=== PATIENT | male | born 1960 ===

== ENCOUNTER 2017-03-07 19:26 | Emergency (ER) | payer OTHER ==
[2017-03-07 19:26] VITALS: BMI 32.9
[2017-03-07 19:57] VITALS: RESP 18; TEMP 98; O2SAT 98
--- NOTE | 2017-03-07 20:54 | C.PDOC ---
History Of Present Illness 56 year old male presents to the ED for evaluation of intermittent bleeding from right nostril which occurred last night and twice today. Patient states the temperature in his home was warm. Patient felt something inside is nose, so he put finger inside and began bleeding after. He denies fever, chills, headache , dizziness. Time Seen by Provider: 03/07/17 20:11 Chief Complaint (Nursing): ENT Problem History Per: Patient History/Exam Limitations: None Onset/Duration Of Symptoms: Hrs, Intermittent Episodes Current Symptoms Are (Timing): Better Past Medical History Reviewed: Historical Data, Nursing Documentation, Vital Signs Vital Signs: Last Vital Signs Temp 98 F 03/07/17 19:54 Pulse 72 03/07/17 21:04 Resp 18 03/07/17 21:04 BP 119/65 03/07/17 21:04 Pulse Ox 98 03/07/17 21:04 - Medical History PMH: HTN (BORDERLINE; CONTROLLED WITH DIET) Denies: Colonic Polyps, Fractures, TIA Surgical History: No Surg Hx Denies: Endoscopy Family History: States: Unknown Family Hx - Social History Hx Alcohol Use: Yes Hx Substance Use: No - Immunization History Hx Tetanus Toxoid Vaccination: No Hx Influenza Vaccination: Yes Hx Pneumococcal Vaccination: No Review Of Systems Constitutional: Negative for: Fever, Chills ENT: Positive for: Other (epistaxis ) Neurological: Negative for: Headache, Dizziness Physical Exam - Physical Exam Appears: Non-toxic, No Acute Distress Skin: Normal Color, Warm, Dry Head: Atraumatic, Normacephalic Eye(s): bilateral: Normal Inspection Nose: No Epistaxis, No Septal Hematoma, No Other (active bleeding, friable vessels) Neck: Supple Chest: Symmetrical, No Deformity, No Tenderness Cardiovascular: Rhythm Regular, No Murmur Respiratory: Normal Breath Sounds, No Rales, No Rhonchi, No Wheezing Neurological/Psych: Oriented x3, Normal Speech, Normal Cognition Gait: Steady ED Course And Treatment O2 Sat by Pulse Oximetry: 98 (on RA) Pulse Ox Interpretation: Normal Progress Note: On reassessment, patient is resting comfortably, showing no signs of distress and has no bleeding at this time. Patient is advised to follow up with his PMD/ENT within 1-2 days for further evaluation and/or return to the ED if symptoms return or worsen. 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 - Scribe Statement The provider has reviewed the documentation as recorded by the Scribe (Silvia Winslow) All medical record entries made by the Scribe were at my direction and personally dictated by me. I have reviewed the chart and agree that the record accurately reflects my personal performance of the history, physical exam, medical decision making, and the department course for this patient. I have also personally directed, reviewed, and agree with the discharge instructions and disposition.
[2017-03-07 21:05] VITALS: BP 119/65; PULSE 72
== END 2017-03-07 21:06 | disposition home or self-care (01) ==
LOC: SUPCPDRO 19:26 → C.ER 19:26
DX: R04.0 Epistaxis (principal)

== ENCOUNTER 2017-09-09 23:04 | Emergency (ER) | payer OTHER ==
[2017-09-09 23:05] VITALS: BMI 32.9
[2017-09-09 23:25] VITALS: BP 127/83; PULSE 131
[2017-09-09] MEDS ORDERED: Naproxen 550 mg Tab PO STA (23:41)
--- NOTE | 2017-09-09 23:55 | C.PDOC ---
History Of Present Illness 57 y/o male presents to the ED complaining of bodyaches and fever onset today around 3:00pm. Associated with mild dysuria. Patient denies any nausea, vomiting , diarrhea, cough, or sore throat. Time Seen by Provider: 09/09/17 23:35 Chief Complaint (Nursing): Fever History Per: Patient History/Exam Limitations: no limitations Onset/Duration Of Symptoms: Hrs Current Symptoms Are (Timing): Still Present Past Medical History Reviewed: Historical Data, Nursing Documentation, Vital Signs Vital Signs: Last Vital Signs Temp 100 F H 09/09/17 23:21 Pulse 131 H 09/09/17 23:21 Resp 16 09/09/17 23:21 BP 127/83 09/09/17 23:21 Pulse Ox 94 L 09/10/17 00:58 - Medical History PMH: HTN (BORDERLINE; CONTROLLED WITH DIET) Denies: Colonic Polyps, Fractures, TIA Surgical History: Hernia Repair Denies: Endoscopy Family History: States: Unknown Family Hx - Social History Hx Alcohol Use: No Hx Substance Use: No - Immunization History Hx Tetanus Toxoid Vaccination: No Hx Influenza Vaccination: No Hx Pneumococcal Vaccination: No Review Of Systems Except As Marked, All Systems Reviewed And Found Negative. Constitutional: Positive for: Fever, Other (body aches) ENT: Negative for: Throat Pain Respiratory: Negative for: Cough Gastrointestinal: Negative for: Nausea, Vomiting, Diarrhea Genitourinary: Positive for: Dysuria Physical Exam - Physical Exam Appears: Non-toxic, No Acute Distress Skin: Normal Color, Warm, Dry Head: Atraumatic, Normacephalic Eye(s): bilateral: Normal Inspection, PERRL, EOMI Nose: Normal Oral Mucosa: Moist Neck: Normal ROM, Supple Chest: Symmetrical Cardiovascular: Rhythm Regular, No Murmur Respiratory: Normal Breath Sounds, No Accessory Muscle Use, No Rales, No Rhonchi , No Wheezing Gastrointestinal/Abdominal: Soft, No Tenderness, No Distention Extremity: Bilateral: Atraumatic, Normal Color And Temperature, Normal ROM Pulses: Left Dorsalis Pedis: Normal, Right Dorsalis Pedis: Normal Neurological/Psych: Oriented x3, Normal Speech, Normal Cranial Nerves, Normal Motor, Normal Sensation, Other (No focal deficits) Gait: Steady ED Course And Treatment - Laboratory Results Result Diagrams: 09/09/17 23:52 05/26/18 23:52 O2 Sat by Pulse Oximetry: 94 (NC) Pulse Ox Interpretation: Normal Medical Decision Making Medical Decision Making: Time: 23:49 Initial Plan: * CMP * CBC * UA * Urine culture * Flu swab * Naproxen 550 mg PO Disposition Counseled Patient/Family Regarding: Diagnosis - Disposition Referrals: [facility] [Outside] Disposition: HOME/ ROUTINE Disposition Time: 01:45 Condition: STABLE Prescriptions: Ciprofloxacin [Cipro] 1 tab PO BID #14 tab Instructions: Urinary Tract Infections in Adults Forms: [employer] (French), Gen Discharge Inst [place]atian Print Language: CYPRIOT - POA Present On Arrival: None - Clinical Impression Clinical Impression: UTI (urinary tract infection) - Scribe Statement The provider has reviewed the documentation as recorded by the Scribe (Gabriella Paniagua) Provider Attestation: All medical record entries made by the Scribe were at my direction and personally dictated by me. I have reviewed the chart and agree that the record accurately reflects my personal performance of the history, physical exam, medical decision making, and the department course for this patient. I have also personally directed, reviewed, and agree with the discharge instructions and disposition.
[2017-09-10 00:05] LABS: BASO # 0.1 K/uL (0.0-0.2); BASO % 0.5 % (0.0-2.0); EOS # 0.1 K/uL (0.0-0.7); EOS % 0.4 % (0.0-4.0); HEMOGLOBIN 14.5 g/dL (12.0-18.0); LYMPH # 0.9 K/uL (1.0-4.3); LYMPH % 5.5 % (20.0-40.0); MEAN CELL VOLUME 85.1 fL (80.0-94.0); MEAN CORPUSCULAR HEMOGLOBIN 29.7 pg (27.0-31.0); MEAN CORPUSCULAR HGB CONC 34.9 g/dL (33.0-37.0); MONO # 0.6 K/uL (0.0-0.8); MONO % 3.9 % (0.0-10.0); NEUT # 14.3 K/uL (1.8-7.0); NEUT % 89.7 % (50.0-75.0); PLATELET COUNT 224 K/uL (130-400); RBC 4.88 Mil/uL (4.40-5.90); RED CELL DISTRIBUTION WIDTH 13.4 % (11.5-14.5); URINE BACTERIA RARE (<OCC); URINE BILIRUBIN NEGATIVE (NEGATIVE); URINE CLARITY Clear (Clear); URINE COLOR Yellow (YELLOW); URINE GLUCOSE (UA) NORMAL (Normal); URINE LEUKOCYTE ESTERASE 1+ Leu/uL (Negative); URINE PROTEIN NEGATIVE (NEGATIVE); URINE UROBILINOGEN NORMAL mg/dL (0.2-1.0)
[2017-09-10 00:07] LABS: URINE BLOOD NEGATIVE (NEGATIVE)
[2017-09-10 00:09] LABS: ALB/GLOB RATIO 1.3 (1.0-2.1); ALBUMIN 4.8 g/dL (3.5-5.0); ALT/SGPT 28 U/L (21-72); AST/SGOT 20 U/L (17-59); BLOOD UREA NITROGEN 21 mg/dL (9-20); CALCIUM 8.9 mg/dl (8.6-10.4); GFR AFRICAN-AMERICAN > 60; GFR NON-AFRICAN AMERICAN > 60
[2017-09-10] MEDS ORDERED: Naproxen 550 mg Tab PO ONE (00:12)
[2017-09-10] MEDS ORDERED: Ciprofloxacin 400mg/200ml D5W 400 MG/200 ML BAG IVPB STA (00:16)
[2017-09-10] MEDS ORDERED: Ciprofloxacin 400mg/200ml D5W 400 MG/200 ML BAG IVPB ONE (00:37)
[2017-09-10 02:01] VITALS: RESP 114; TEMP 99.7; O2SAT 95
[2017-09-10 02:01] LABS: BANDS 1 % (0-2); LYMPHOCYTE 7 % (20-40); MONOCYTE 3 % (0-10); NEUTROPHIL 89 % (50-75); PLATELET ESTIMATE NORMAL (NORMAL); TOTAL CELLS COUNTED 100
== END 2017-09-10 02:29 | disposition home or self-care (01) ==
LOC: C.ER 23:04
DX: N39.0 Urinary tract infection, site not specified (principal)
CPT/HCPCS: 80053; 81001; 85025; 87086; 87804; 96365; 99284; J0744

== ENCOUNTER 2017-09-11 19:08 | Emergency (ER) | payer OTHER ==
[2017-09-11 19:09] VITALS: BMI 32.9
--- NOTE | 2017-09-11 19:39 | C.PDOC ---
History Of Present Illness 57 year old male presents to the ED c/o acute urinary retention. Patient was seen in the ED on Monday for the same complaints and was prescribed antibiotics for UTI. Patient rates his pain at 7/10. Patient denies fever. chills, nausea, vomit, diarrhea. Time Seen by Provider: 09/11/17 19:39 Chief Complaint (Nursing): Male Genitourinary History Per: Patient History/Exam Limitations: no limitations Onset/Duration Of Symptoms: Days Current Symptoms Are (Timing): Still Present Quality Of Discomfort: "Pain" Associated Symptoms: Urinary Symptoms. denies: Fever, Chills, Nausea, Vomiting Alleviating Factors: None Recent travel outside of the [place]: No Additional History Per: Patient Past Medical History Reviewed: Historical Data, Nursing Documentation, Vital Signs Vital Signs: Last Vital Signs Temp 98 F 09/11/17 19:18 Pulse 121 H 09/11/17 19:18 Resp 20 09/11/17 19:18 BP 171/94 H 09/11/17 19:18 Pulse Ox 98 09/11/17 20:05 - Medical History PMH: HTN (BORDERLINE; CONTROLLED WITH DIET) Denies: Colonic Polyps, Fractures, TIA Surgical History: Hernia Repair Denies: Endoscopy Family History: States: Unknown Family Hx - Social History Hx Alcohol Use: No Hx Substance Use: No - Immunization History Hx Tetanus Toxoid Vaccination: No Hx Influenza Vaccination: No Hx Pneumococcal Vaccination: No Review Of Systems Constitutional: Negative for: Fever, Chills Gastrointestinal: Negative for: Nausea, Vomiting, Abdominal Pain, Diarrhea Genitourinary: Positive for: Other (urianry retention ) Skin: Negative for: Rash Neurological: Negative for: Weakness, Numbness Physical Exam - Physical Exam Appears: Non-toxic, No Acute Distress Skin: Warm, Dry Head: Normacephalic Eye(s): bilateral: Normal Inspection Oral Mucosa: Moist Neck: Supple Chest: Symmetrical Cardiovascular: Rhythm Regular Respiratory: No Rales, No Rhonchi, No Wheezing Gastrointestinal/Abdominal: Soft, Tenderness (suprapubic ), No Guarding, No Rebound, Other (positive globus vesicalis) Back: Normal Inspection Extremity: Normal ROM, No Tenderness, Capillary Refill (< 2 seconds), No Swelling Extremity: Bilateral: Atraumatic, Normal Color And Temperature Pulses: Left Dorsalis Pedis: Normal, Right Dorsalis Pedis: Normal Neurological/Psych: Oriented x3, Normal Speech Gait: Steady ED Course And Treatment O2 Sat by Pulse Oximetry: 98 (On RA) Pulse Ox Interpretation: Normal Progress Note: Plan: - VBG. - Labs. - IV fluids. - UA. An 18 fijian moreno was placed with no difficulty. Approximately 500 cc of urine were drained and patient states he feels relief. Disposition Counseled Patient/Family Regarding: Studies Performed, Diagnosis, Need For Followup, Rx Given - Disposition Referrals: [facility] [Outside] [facility] [Outside] Krystian Shabazz Jr., MD [Staff Provider] - Disposition: HOME/ ROUTINE Disposition Time: 19:39 Condition: FAIR Additional Instructions: stop the cipro Prescriptions: Levofloxacin [Levaquin] 500 mg PO DAILY #10 tablet Instructions: Urinary Retention (DC), How to Care for Your Moreno Catheter, Male , Urinary Tract Infection, Adult (DC) Forms: [employer] (Kinyarwanda) Print Language: KAZAKH - Clinical Impression Clinical Impression: Moreno catheter in place, UTI (urinary tract infection) - Scribe Statement The provider has reviewed the documentation as recorded by the Scribe Feliciano Burton All medical record entries made by the Scribe were at my direction and personally dictated by me. I have reviewed the chart and agree that the record accurately reflects my personal performance of the history, physical exam, medical decision making, and the department course for this patient. I have also personally directed, reviewed, and agree with the discharge instructions and disposition.
[2017-09-11] MEDS ORDERED: Sodium Chloride 0.9% 1,000 ML IV ONE (19:40)
[2017-09-11 19:48] LABS: SQUAMOUS EPITHIAL < 1 /hpf (0-5); URINE BILIRUBIN NEGATIVE (NEGATIVE); URINE BLOOD 2+ (NEGATIVE); URINE CLARITY Clear (Clear); URINE COLOR Straw (YELLOW); URINE GLUCOSE (UA) NORMAL (Normal); URINE LEUKOCYTE ESTERASE 3+ Leu/uL (Negative); URINE PROTEIN NEGATIVE (NEGATIVE); URINE UROBILINOGEN NORMAL mg/dL (0.2-1.0)
[2017-09-11 20:31] VITALS: BP 130/78; PULSE 100; RESP 16; TEMP 98.6; O2SAT 95
== END 2017-09-11 20:31 | disposition home or self-care (01) ==
LOC: C.ER 19:08
DX: N39.0 Urinary tract infection, site not specified (principal)

== ENCOUNTER 2018-05-30 13:43 | Outpatient (CLI) | payer OTHER | END 2018-05-30 13:44 | disposition home or self-care (01) | LOC: C.LAB 13:43 | DX: N52.9 Male erectile dysfunction, unspecified (principal) ==